=== PATIENT | female | born 1980 | race Caucasian/White ===

== ENCOUNTER 2018-11-05 10:40 | Outpatient (CLI) | payer OTHER ==
[~2018-11-05 10:40] MED LIST: ALLEGRA ALLERG180 MG PO; FLONASE16 GM NS; GILTUSS TR TAB1 EACH PO; ORTHO TRI-CYCL1 EAC1; TUSSI-PRES LIQ120 ML PO; ZITHROMAX TRI-500 MG PO
== END 2018-11-05 11:51 | disposition home or self-care (01) ==
LOC: NST 10:40
DX: Z34.82 Encounter for supervision of other normal pregnancy, second trimester (principal)

== ENCOUNTER 2019-01-06 10:12 | Outpatient (CLI) | payer OTHER | END 2019-01-06 13:11 | disposition home or self-care (01) | LOC: NST 10:12 | DX: Z34.83 Encounter for supervision of other normal pregnancy, third trimester (principal) ==

== ENCOUNTER 2019-01-17 10:57 | Outpatient (CLI) | payer OTHER | END 2019-01-17 11:51 | disposition home or self-care (01) | LOC: NST 10:57 | DX: Z34.83 Encounter for supervision of other normal pregnancy, third trimester (principal) ==

== ENCOUNTER 2019-02-01 10:13 | Inpatient (IN) | payer OTHER ==
[~2019-02-01] VITALS: Ht 162.6 cm; Wt 178.0 kg
[2019-02-01] MEDS ORDERED: PRENATAL CAPLE1 EAC1 PO (11:03)
== END 2019-02-03 12:35 | disposition home or self-care (01) | DRG 807 ==
LOC: LDR 10:13 → OB/GYN 10:13
PROVIDERS: ADMIT Obstetrics & Gynecology
PROC: 10E0XZZ Delivery of Products of Conception, External Approach (ICD-10-PCS; principal; 2019-02-01)
PROC: 10907ZC Drainage of Amniotic Fluid, Therapeutic from Products of Conception, Via Natural or Artificial Opening (ICD-10-PCS; 2019-02-01)
PROC: 0W8NXZZ Division of Female Perineum, External Approach (ICD-10-PCS; 2019-02-01)
PROC: 3E033VJ Introduction of Other Hormone into Peripheral Vein, Percutaneous Approach (ICD-10-PCS; 2019-02-01)
PROC: 4A1HXCZ Monitoring of Products of Conception, Cardiac Rate, External Approach (ICD-10-PCS; 2019-02-01)
DX: O80 Encounter for full-term uncomplicated delivery (principal); Z37.0 Single live birth; Z3A.37 37 weeks gestation of pregnancy

== ENCOUNTER 2021-09-01 10:49 | Emergency (ER) | payer OTHER ==
[~2021-09-01] VITALS: Ht 162.6 cm; Wt 63.5 kg
[~2021-09-01 10:49] MED LIST changes: +PRENATAL CAPLE1 EAC1 PO
[2021-09-01] MEDS ORDERED: BREO ELLIPTA I1 EACH IH (11:04)
[2021-09-01] MEDS ORDERED: FLONASE16 GM NS (11:05)
[2021-09-01] MEDS ORDERED: KETO10TA2 PO (14:47)
== END 2021-09-01 15:00 | disposition home or self-care (01) ==
LOC: ER 10:49
DX: S99.811A Other specified injuries of right ankle, initial encounter (principal); X58.XXXA Exposure to other specified factors, initial encounter; Y93.89 Activity, other specified; Y92.89 Other specified places as the place of occurrence of the external cause